=== PATIENT | male | born 1960 | race African-American/Black ===

== ENCOUNTER 2017-07-17 10:04 | Inpatient (IN) | payer OTHER ==
[2017-07-17 12:49] VITALS: BMI 24.5
--- NOTE | 2017-07-17 15:04 | HP ---
COWS - Scale Resting Pulse: 2= [place] 101-120 Sweatin=Flushed/Facial Moisture Restless Observation: 1= Difficult to Sit Still Pupil Size: 0= Normal to Room Light Bone or Joint Aches: 2= Severe Diffuse Aches Runny Nose/ Eye Tearin= Runny Nose/Eyes GI Upset > 30mins: 2= Nausea/Diarrhea Tremor Observation: 2= Slight Tremor Visible Yawning Observation: 2= >3x During Session Anxiety or Irritability: 2=Irritable/Anxious Goose Flesh Skin: 3=Piloerection COWS Score: 20 Admission ROS S - HPI Chief Complaint: I need help. Allergies/Adverse Reactions: Allergies Allergy/AdvReac Type Severity Reaction Status Date / Time No Known Allergies Allergy Verified 07/17/17 14:24 History of Present Illness: pt is a 57yr old male with a history of heroin and cocaine dependence seeking detox for treatment. Exam Limitations: No Limitations - Ebola screening Have you traveled outside of the country in the last 21 days: No (N) Have you had contact with anyone from an Ebola affected area: No Have you been sick,other than usual withdrawal symptoms: No Do you have a fever: No - Review of Systems Constitutional: Chills, Diaphoresis, Loss of Appetite, Night Sweats, Changes in sleep, Unintentional Wgt. Loss EENT: reports: Tearing, Nose Congestion Respiratory: reports: No Symptoms reported Cardiac: reports: No Symptoms Reported GI: reports: Constipated, Nausea, Poor Fluid Intake : reports: No Symptoms Reported Musculoskeletal: reports: Back Pain Integumentary: reports: Flushing, Rash (eczema to back and arms) Neuro: reports: Tingling, Tremors Endocrine: reports: Excessive Sweating, Flushing, Intolerance to Cold, Intolerance to Heat Hematology: reports: No Symptoms Reported Psychiatric: reports: Judgement Intact, Mood/Affect Appropiate, Orientated x3, Agitated, Anxious, Depressed Other Systems: Reviewed and Negative Patient History - Patient Medical History Hx Anemia: No Hx Asthma: No Hx Chronic Obstructive Pulmonary Disease (COPD): No Hx Cancer: No Hx Cardiac Disorders: No Hx Congestive Heart Failure: No Hx Hypertension: No Hx Hypercholesterolemia: Yes (not taking any medication) Hx Pacemaker: No HX Cerebrovascular Accident: No Hx Seizures: No Hx Dementia: No Hx Diabetes: No Hx Gastrointestinal Disorders: No Hx Liver Disease: No Hx Genitourinary Disorders: No Hx Sexually Transmitted Disorders: No Hx Renal Disease (ESRD): No Hx Thyroid Disease: No Hx Human Immunodeficiency Virus (HIV): No (negative) Hx Hepatitis C: No (negative) Hx Depression: Yes Hx Suicide Attempt: No (denies) Hx Bipolar Disorder: No Hx Schizophrenia: No - Patient Surgical History Past Surgical History: No - PPD History Previous Implant?: Yes Documented Results: Negative w/o proof Implanted On Prior R Admission?: No PPD to be Administered?: Yes - Reproductive History Patient is a Female of Child Bearing Age (11 -55 yrs old): No - Smoking Cessation Smoking history: Current every day smoker Have you smoked in the past 12 months: Yes Aproximately how many cigarettes per day: 5 Hx Chewing Tobacco Use: No Initiated information on smoking cessation: Yes 'Breaking Loose' booklet given: 07/17/17 - Substance & Tx. History Hx Alcohol Use: No Substance Use Type: Cocaine, Heroin Hx Substance Use Treatment: Yes (last detox a very long time ago) - Substances Abused Heroin Route: Inhalation Frequency: Daily Amount used: 15--20 bags Age of first use: 52 Date of Last Use: 07/15/17 Cocaine Route: Smoking Frequency: Daily Amount used: $50 Age of first use: 52 Date of Last Use: 07/15/17 Family Disease History - Family Disease History Family History: Denies Admission Physical Exam BHS - Vital Signs Vital Signs: Vital Signs - 24 hr 07/17/17 12:45 Temperature 98.4 F Pulse Rate 103 H Respiratory 18 Rate Blood Pressure 137/80 - Physical General Appearance: Yes: Appropriately Dressed, Moderate Distress, Tremorous, Irritable, Sweating, Anxious HEENTM: Yes: Hearing grossly Normal, Normal Voice Respiratory: Yes: Lungs Clear, Normal Breath Sounds, No Respiratory Distress Neck: Yes: Within Normal Limits Breast: Yes: Within Normal Limits Cardiology: Yes: Regular Rhythm, Regular Rate, S1, S2 Abdominal: Yes: Normal Bowel Sounds, Non Tender, Soft Genitourinary: Yes: Within Normal Limits Back: Yes: Normal Inspection Musculoskeletal: Yes: full range of Motion, Gait Steady Extremities: Yes: Normal Capillary Refill, Normal Inspection, Tremors Neurological: Yes: Fully Oriented, Alert, Normal Response Integumentary: Yes: Normal Color, Diaphoresis, Other (rash with darken spots d/ t eczema) Lymphatic: Yes: Within Normal Limits - Diagnostic (1) Opioid dependence with withdrawal Current Visit: Yes Status: Chronic (2) Eczema Current Visit: Yes Status: Chronic Qualifiers: Eczema type: unspecified Qualified Code(s): L30.9 - Dermatitis, unspecified (3) Nicotine dependence Current Visit: Yes Status: Chronic Qualifiers: Nicotine product type: cigarettes Substance use status: uncomplicated Qualified Code(s): F17.210 - Nicotine dependence, cigarettes, uncomplicated (4) Cocaine dependence Current Visit: Yes Status: Chronic Qualifiers: Substance use status: uncomplicated Qualified Code(s): F14.20 - Cocaine dependence, uncomplicated Cleared for Admission S - Detox or Rehab [facility] Level of Care: Medically Managed Detox Regimen/Protocol: Methadone [facility] Breath Alcohol Content Breath Alcohol Content: 0 Urine Drug Screen - Results Drug Screen Negative: No Urine Drug Screen Results: ANETTE-Cocaine, OPI-Opiates, MTD-Methadone
[2017-07-17] MEDS ORDERED: hydrOXYzine PAMOATE 50 MG CAPSULE (FP) PO PRN (15:11)
[2017-07-17] MEDS ORDERED: MAGNESIUM HYDROX 2400MG/30ML ORAL SUSPENSION 30 ML CUP PO PRN (15:11)
[2017-07-17] MEDS ORDERED: P-EPHED 60MG/TRIPROLIDI 2.5MG TABLET PO PRN (15:11)
[2017-07-17] MEDS ORDERED: MAG HYDROX/AL HYDROX/SIMETH 30 ML UNIT-DOSE CUP PO PRN (15:11)
[2017-07-17] MEDS ORDERED: NICOTINE POLACRILEX 4 MG GUM BUC PRN (15:11)
[2017-07-17] MEDS ORDERED: IBUPROFEN 400 MG TABLET (FP) PO PRN (15:11)
[2017-07-17] MEDS ORDERED: MENTHOL/PHENOL 1 EACH UD MM PRN (15:11)
[2017-07-17] MEDS ORDERED: MAGNESIUM CITRATE 300 ML BOTTLE PO PRN (15:11)
[2017-07-17] MEDS ORDERED: METHADONE HCL 10 MG TABLET (FOR DETOX USE ONLY) PO ONE ×2 (15:50→23:00)
[2017-07-17] MEDS ORDERED: ACETAMINOPHEN 325 MG TABLET (FP) PO PRN (17:09)
[2017-07-17] MEDS ORDERED: guaiFENesin/D-METHORPHAN HB 10 ML UNIT-DOSE CUPS PO PRN (17:10)
[2017-07-17] MEDS ORDERED: METHADONE HCL 10 MG TABLET (FOR DETOX USE ONLY) ONE (18:08)
[2017-07-17] MEDS: diazePAM 5 MG TABLET PO PRN ×2 (18:18→22:22)
[2017-07-17] MEDS: THIAMINE HCL 100 MG TABLET (FP) PO SCH (22:20)
[2017-07-17 23:15] LABS: URINE APPEARANCE TURBID; URINE BILIRUBIN NEGATIVE (NEGATIVE); URINE BLOOD NEGATIVE (NEGATIVE); URINE COLOR RED; URINE GLUCOSE (UA) NEGATIVE (NEGATIVE); URINE KETONE NEGATIVE (NEGATIVE); URINE LEUK ESTERASE NEGATIVE (NEGATIVE); URINE NITRITE NEGATIVE (NEGATIVE); URINE PROTEIN NEGATIVE (NEGATIVE)
[2017-07-18] MEDS ORDERED: METHADONE HCL 10 MG TABLET (FOR DETOX USE ONLY) PO ONE (10:00)
[2017-07-18] MEDS: NICOTINE 21 MG/24 HOURS TOPICAL PATCH TD SCH (10:26)
[2017-07-18] MEDS: diazePAM 5 MG TABLET PO PRN ×2 (10:26→22:32)
[2017-07-18] MEDS: PRENATAL VITAMINS W/ FOLIC ACID TABLET (FP) PO SCH (10:28)
[2017-07-18 10:38] LABS: HEMATOCRIT 42.5 % (35.4-49); HEMOGLOBIN 13.6 GM/dL (11.7-16.9); MCH 26.1 pg (25.7-33.7); MEAN CELL VOLUME 81.6 fl (80-96); MEAN PLT VOLUME 8.7 fl (7.5-11.1); PLATELET COUNT 271 K/MM3 (134-434); RBC 5.21 M/mm3 (4.00-5.60); RDW 15.3 % (11.9-15.9); WHITE BLOOD COUNT 9.5 K/mm3 (4.0-10.0)
[2017-07-18 10:43] LABS: ALBUMIN 3.6 g/dl (3.4-5.0); ANION GAP 7 (8-16); BLOOD UREA NITROGEN 20 mg/dL (7-18); CALCIUM 8.5 mg/dL (8.5-10.1); CHLORIDE 105 mmol/L (98-107); CO2 27 mmol/L (21-32); GLUCOSE,RANDOM 118 mg/dL (74-106); POTASSIUM 3.7 mmol/L (3.5-5.1); SODIUM 139 mmol/L (136-145)
[2017-07-18 10:47] LABS: ALK PHOS 58 U/L (45-117); BILIRUBIN,TOTAL 0.5 mg/dL (0.2-1.0); SGOT/AST 5 U/L (15-37); SGPT/ALT 13 U/L (12-78); TOT PROT 6.9 g/dl (6.4-8.2)
--- NOTE | 2017-07-18 11:04 | PN ---
BHS COWS - Scale Resting Pulse: 0= [place] 80 or Below Sweatin=Flushed/Facial Moisture Restless Observation: 1= Difficult to Sit Still Pupil Size: 0= Normal to Room Light Bone or Joint Aches: 2= Severe Diffuse Aches Runny Nose/ Eye Tearin= Nasal Congestion GI Upset > 30mins: 2= Nausea/Diarrhea Tremor Observation of Outstretched Hands: 2= Slight Tremor Visible Yawning Observation: 0= None Anxiety or Irritability: 2=Irritable/Anxious Goose Flesh Skin: 3=Piloerection COWS Score: 15 BHS Progress Note (SOAP) Subjective: Shakes, sweats, generalized itch and restlessness Objective: 07/18/17 11:00 Vital Signs - 8 hr 07/18/17 07/18/17 06:25 09:11 Temperature 97.6 F 97.9 F Pulse Rate 73 78 Respiratory 18 18 Rate Blood Pressure 106/67 106/64 Laboratory Last Values WBC 9.5 K/mm3 (4.0-10.0) 07/18/17 08:00 RBC 5.21 M/mm3 (4.00-5.60) 07/18/17 08:00 Hgb 13.6 GM/dL (11.7-16.9) 07/18/17 08:00 Hct 42.5 % (35.4-49) 07/18/17 08:00 MCV 81.6 fl (80-96) 07/18/17 08:00 MCH 26.1 pg (25.7-33.7) 07/18/17 08:00 MCHC 32.0 g/dl (32.0-35.9) 07/18/17 08:00 RDW 15.3 % (11.9-15.9) 07/18/17 08:00 Plt Count 271 K/MM3 (134-434) 07/18/17 08:00 MPV 8.7 fl (7.5-11.1) 07/18/17 08:00 Sodium 139 mmol/L (136-145) 07/18/17 08:00 Potassium 3.7 mmol/L (3.5-5.1) 07/18/17 08:00 Chloride 105 mmol/L (98-107) 07/18/17 08:00 Carbon Dioxide 27 mmol/L (21-32) 07/18/17 08:00 Anion Gap 7 (8-16) L 07/18/17 08:00 BUN 20 mg/dL (7-18) H 07/18/17 08:00 Creatinine 1.0 mg/dL (0.7-1.3) 07/18/17 08:00 Creat Clearance w eGFR > 60 (>60) 07/18/17 08:00 Random Glucose 118 mg/dL (74-106) H 07/18/17 08:00 Calcium 8.5 mg/dL (8.5-10.1) 07/18/17 08:00 Total Bilirubin 0.5 mg/dL (0.2-1.0) 07/18/17 08:00 AST 5 U/L (15-37) L 07/18/17 08:00 ALT 13 U/L (12-78) 07/18/17 08:00 Alkaline Phosphatase 58 U/L (45-117) 07/18/17 08:00 Total Protein 6.9 g/dl (6.4-8.2) 07/18/17 08:00 Albumin 3.6 g/dl (3.4-5.0) 07/18/17 08:00 Urine Color Red 07/17/17 21:00 Urine Appearance Turbid 07/17/17 21:00 Urine pH 5.0 (5.0-8.0) 07/17/17 21:00 Ur Specific [place] 1.027 (1.001-1.035) 07/17/17 21:00 Urine Protein Negative (NEGATIVE) 07/17/17 21:00 Urine Glucose (UA) Negative (NEGATIVE) 07/17/17 21:00 Urine Ketones Negative (NEGATIVE) 07/17/17 21:00 Urine Blood Negative (NEGATIVE) 07/17/17 21:00 Urine Nitrite Negative (NEGATIVE) 07/17/17 21:00 Urine Bilirubin Negative (NEGATIVE) 07/17/17 21:00 Urine Urobilinogen 2.0 mg/dL (0.2-1.0) 07/17/17 21:00 Ur Leukocyte Esterase Negative (NEGATIVE) 07/17/17 21:00 Labs noted Chronic skin changes with black spots and patches over body Assessment: 07/18/17 11:02 Withdrawal sx Atopic dermatitis Plan: Continue detox Hydrocortisone cream to affected areas
--- NOTE | 2017-07-18 11:31 | CONSULT ---
[facility] Psychiatric Consult - Data Date of interview: 07/18/17 Admission source: [facility] Identifying data: First admission to [facility] for this 57 y/o AA male seeking detox treatment on for heroin and cocaine dependence.Patient is , father of two,domiciled,unemployed and supported by spouse. Substance Abuse History: Confirmed by patient in this session.See details in current [facility] report : Smoking history: Current every day smoker. Have you smoked in the past 12 months: Yes. Aproximately how many cigarettes per day: 5. Hx Chewing Tobacco Use: No. Initiated information on smoking cessation: Yes. 'Breaking Loose' booklet given: 07/17/17. - Substance & Tx. History. Hx Alcohol Use: No. Substance Use Type: Cocaine, Heroin. Hx Substance Use Treatment: Yes (last detox a very long time ago). - Substances Abused. Heroin. Route: Inhalation. Frequency: Daily. Amount used: 15--20 bags. Age of first use: 52. Date of Last Use: 07/15/17. Cocaine. Route: Smoking. Frequency: Daily. Amount used: $50. Age of first use: 52. Date of Last Use: 07/15/17 Medical History: Eczema and dyslipidemia. Psychiatric History: Patient denies. Physical/Sexual Abuse/Trauma History: Patient denies. Additional Comment: Urine Drug Screen Results: ANETTE-Cocaine, OPI-Opiates, MTD- Methadone.Noted. Mental Status Exam - Mental Status Exam Alert and Oriented to: Time, Place, Person Cognitive Function: Good Patient Appearance: Well Groomed Mood: Hopeful, Euthymic Affect: Appropriate, Normal Range Patient Behavior: Appropriate, Cooperative Speech Pattern: Clear Voice Loudness: Normal Thought Process: Intact, Goal Oriented Thought Disorder: Not Present Hallucinations: Denies Suicidal Ideation: Denies Homicidal Ideation: Denies Insight/Judgement: Poor Sleep: Poorly, Difficulty falling asleep Appetite: Good Muscle strength/Tone: Normal Gait/Station: Normal Psychiatric Findings - Problem List ([place] 1, 2,3) (1) Opioid dependence with withdrawal Current Visit: Yes Status: Acute (2) Cocaine dependence Current Visit: Yes Status: Acute Qualifiers: Substance use status: uncomplicated Qualified Code(s): F14.20 - Cocaine dependence, uncomplicated (3) Nicotine dependence Current Visit: Yes Status: Acute Qualifiers: Nicotine product type: cigarettes Substance use status: uncomplicated Qualified Code(s): F17.210 - Nicotine dependence, cigarettes, uncomplicated (4) Insomnia Current Visit: Yes Status: Acute - Initial Treatment Plan Initial Treatment Plan: Psychoeducation provided.Detoxification in progress.Ambien 10 mg po hs prn.Parasomnias discussed.Patient consents (verbally ) to treatment.Observation.
[2017-07-18] MEDS ORDERED: FLU VACCINE QUAD 60 MCG/0.5 ML (MDV 17-18) IM ONE (12:00)
[2017-07-18] MEDS: HYDROCORTISONE 1% TOPICAL CREAM 30 GM TUBE TP PRN ×2 (13:48→22:35)
--- NOTE | 2017-07-18 16:51 | EKG ---
Test Reason : Blood Pressure : / mmHG Vent. Rate : 069 BPM Atrial Rate : 069 BPM P-R Int : 218 ms QRS Dur : 074 ms QT Int : 366 ms P-R-T Axes : 072 -22 022 degrees QTc Int : 392 ms SINUS RHYTHM WITH 1ST DEGREE A-V BLOCK ANTERIOR INFARCT , AGE UNDETERMINED ABNORMAL ECG NO PREVIOUS ECGS AVAILABLE Confirmed by MARLEE VOGEL MD ([id number]) on 07/18/2017 4:51:34 PM Referred By: Confirmed By:MARLEE VOGEL MD
[2017-07-18] MEDS: THIAMINE HCL 100 MG TABLET (FP) PO SCH (22:32)
[2017-07-18] MEDS: ZOLPIDEM TARTRATE 10 MG TABLET (PARK CARE ONLY) PO PRN (22:33)
[2017-07-19] MEDS: diazePAM 5 MG TABLET PO PRN ×3 (06:10→22:25)
[2017-07-19] MEDS ORDERED: METHADONE HCL 5 MG TABLET (FOR DETOX USE ONLY) PO ONE (10:00)
[2017-07-19] MEDS: NICOTINE 21 MG/24 HOURS TOPICAL PATCH TD SCH (10:22)
[2017-07-19] MEDS: PRENATAL VITAMINS W/ FOLIC ACID TABLET (FP) PO SCH (10:23)
--- NOTE | 2017-07-19 15:02 | PN ---
BHS COWS - Scale Resting Pulse: 1= [place] 81-100 Sweatin= Chills/Flushing Restless Observation: 3= Extraneous Movement Pupil Size: 1= Pupils >than Normal Bone or Joint Aches: 1= Mild Discomfort Runny Nose/ Eye Tearin= Nasal Congestion GI Upset > 30mins: 0= None Tremor Observation of Outstretched Hands: 2= Slight Tremor Visible Yawning Observation: 0= None Anxiety or Irritability: 2=Irritable/Anxious Goose Flesh Skin: 0=Smooth Skin COWS Score: 12 BHS Progress Note (SOAP) Subjective: anxious irritable nasal congestion Objective: 07/19/17 15:02 Laboratory Last Values WBC 9.5 K/mm3 (4.0-10.0) 07/18/17 08:00 RBC 5.21 M/mm3 (4.00-5.60) 07/18/17 08:00 Hgb 13.6 GM/dL (11.7-16.9) 07/18/17 08:00 Hct 42.5 % (35.4-49) 07/18/17 08:00 MCV 81.6 fl (80-96) 07/18/17 08:00 MCH 26.1 pg (25.7-33.7) 07/18/17 08:00 MCHC 32.0 g/dl (32.0-35.9) 07/18/17 08:00 RDW 15.3 % (11.9-15.9) 07/18/17 08:00 Plt Count 271 K/MM3 (134-434) 07/18/17 08:00 MPV 8.7 fl (7.5-11.1) 07/18/17 08:00 Sodium 139 mmol/L (136-145) 07/18/17 08:00 Potassium 3.7 mmol/L (3.5-5.1) 07/18/17 08:00 Chloride 105 mmol/L (98-107) 07/18/17 08:00 Carbon Dioxide 27 mmol/L (21-32) 07/18/17 08:00 Anion Gap 7 (8-16) L 07/18/17 08:00 BUN 20 mg/dL (7-18) H 07/18/17 08:00 Creatinine 1.0 mg/dL (0.7-1.3) 07/18/17 08:00 Creat Clearance w eGFR > 60 (>60) 07/18/17 08:00 Random Glucose 118 mg/dL (74-106) H 07/18/17 08:00 Calcium 8.5 mg/dL (8.5-10.1) 07/18/17 08:00 Total Bilirubin 0.5 mg/dL (0.2-1.0) 07/18/17 08:00 AST 5 U/L (15-37) L 07/18/17 08:00 ALT 13 U/L (12-78) 07/18/17 08:00 Alkaline Phosphatase 58 U/L (45-117) 07/18/17 08:00 Total Protein 6.9 g/dl (6.4-8.2) 07/18/17 08:00 Albumin 3.6 g/dl (3.4-5.0) 07/18/17 08:00 Urine Color Red 07/17/17 21:00 Urine Appearance Turbid 07/17/17 21:00 Urine pH 5.0 (5.0-8.0) 07/17/17 21:00 Ur Specific [place] 1.027 (1.001-1.035) 07/17/17 21:00 Urine Protein Negative (NEGATIVE) 07/17/17 21:00 Urine Glucose (UA) Negative (NEGATIVE) 07/17/17 21:00 Urine Ketones Negative (NEGATIVE) 07/17/17 21:00 Urine Blood Negative (NEGATIVE) 07/17/17 21:00 Urine Nitrite Negative (NEGATIVE) 07/17/17 21:00 Urine Bilirubin Negative (NEGATIVE) 07/17/17 21:00 Urine Urobilinogen 2.0 mg/dL (0.2-1.0) 07/17/17 21:00 Ur Leukocyte Esterase Negative (NEGATIVE) 07/17/17 21:00 RPR Titer Nonreactive (NONREACTIVE) 07/18/17 08:00 HIV 1&2 Antibody Screen Negative 07/18/17 08:00 HIV P24 Antigen Negative 07/18/17 08:00 labs noted Vital Signs Temperature 96.6 F L 07/19/17 14:14 Pulse Rate 87 07/19/17 14:14 Respiratory Rate 16 07/19/17 14:14 Blood Pressure 130/81 07/19/17 14:14 O2 Sat by Pulse Oximetry (%) Assessment: 07/19/17 15:04 withdrawal sx Plan: Continue detox
[2017-07-19] MEDS: HYDROCORTISONE 1% TOPICAL CREAM 30 GM TUBE TP PRN (22:24)
[2017-07-19] MEDS: ZOLPIDEM TARTRATE 10 MG TABLET (PARK CARE ONLY) PO PRN (22:25)
[2017-07-19] MEDS: THIAMINE HCL 100 MG TABLET (FP) PO SCH (22:25)
[2017-07-20] MEDS: LOPERAMIDE HCL 2 MG CAPSULE PO PRN (06:46)
[2017-07-20] MEDS ORDERED: METHADONE HCL 5 MG TABLET (FOR DETOX USE ONLY) PO ONE (10:00)
[2017-07-20] MEDS: PRENATAL VITAMINS W/ FOLIC ACID TABLET (FP) PO SCH (10:18)
[2017-07-20] MEDS: NICOTINE 21 MG/24 HOURS TOPICAL PATCH TD SCH (10:18)
[2017-07-20] MEDS: HYDROCORTISONE 1% TOPICAL CREAM 30 GM TUBE TP PRN (10:18)
--- NOTE | 2017-07-20 14:15 | PN ---
S Progress Note (SOAP) Subjective: ANXIETY,IRRITABILITY,LOWER BACK PAIN,DIARRHEA WITH RECTAL SORENESS/BLEEDING ON WIPING.. Objective: 07/20/17 14:13 Vital Signs Temperature 97.9 F 07/20/17 13:40 Pulse Rate 92 H 07/20/17 13:40 Respiratory Rate 20 07/20/17 13:40 Blood Pressure 113/78 07/20/17 13:40 O2 Sat by Pulse Oximetry (%) Laboratory Last Values WBC 9.5 K/mm3 (4.0-10.0) 07/18/17 08:00 RBC 5.21 M/mm3 (4.00-5.60) 07/18/17 08:00 Hgb 13.6 GM/dL (11.7-16.9) 07/18/17 08:00 Hct 42.5 % (35.4-49) 07/18/17 08:00 MCV 81.6 fl (80-96) 07/18/17 08:00 MCH 26.1 pg (25.7-33.7) 07/18/17 08:00 MCHC 32.0 g/dl (32.0-35.9) 07/18/17 08:00 RDW 15.3 % (11.9-15.9) 07/18/17 08:00 Plt Count 271 K/MM3 (134-434) 07/18/17 08:00 MPV 8.7 fl (7.5-11.1) 07/18/17 08:00 Sodium 139 mmol/L (136-145) 07/18/17 08:00 Potassium 3.7 mmol/L (3.5-5.1) 07/18/17 08:00 Chloride 105 mmol/L (98-107) 07/18/17 08:00 Carbon Dioxide 27 mmol/L (21-32) 07/18/17 08:00 Anion Gap 7 (8-16) L 07/18/17 08:00 BUN 20 mg/dL (7-18) H 07/18/17 08:00 Creatinine 1.0 mg/dL (0.7-1.3) 07/18/17 08:00 Creat Clearance w eGFR > 60 (>60) 07/18/17 08:00 Random Glucose 118 mg/dL (74-106) H 07/18/17 08:00 Calcium 8.5 mg/dL (8.5-10.1) 07/18/17 08:00 Total Bilirubin 0.5 mg/dL (0.2-1.0) 07/18/17 08:00 AST 5 U/L (15-37) L 07/18/17 08:00 ALT 13 U/L (12-78) 07/18/17 08:00 Alkaline Phosphatase 58 U/L (45-117) 07/18/17 08:00 Total Protein 6.9 g/dl (6.4-8.2) 07/18/17 08:00 Albumin 3.6 g/dl (3.4-5.0) 07/18/17 08:00 Urine Color Red 07/17/17 21:00 Urine Appearance Turbid 07/17/17 21:00 Urine pH 5.0 (5.0-8.0) 07/17/17 21:00 Ur Specific [place] 1.027 (1.001-1.035) 07/17/17 21:00 Urine Protein Negative (NEGATIVE) 07/17/17 21:00 Urine Glucose (UA) Negative (NEGATIVE) 07/17/17 21:00 Urine Ketones Negative (NEGATIVE) 07/17/17 21:00 Urine Blood Negative (NEGATIVE) 07/17/17 21:00 Urine Nitrite Negative (NEGATIVE) 07/17/17 21:00 Urine Bilirubin Negative (NEGATIVE) 07/17/17 21:00 Urine Urobilinogen 2.0 mg/dL (0.2-1.0) 07/17/17 21:00 Ur Leukocyte Esterase Negative (NEGATIVE) 07/17/17 21:00 RPR Titer Nonreactive (NONREACTIVE) 07/18/17 08:00 HIV 1&2 Antibody Screen Negative 07/18/17 08:00 HIV P24 Antigen Negative 07/18/17 08:00 Assessment: 07/20/17 14:13 WITHDRAWAL SX Plan: CONTINUE DETOX TUCKS WIPES AND ANUSOL HC OINTMENT. IMODIUM PRN
[2017-07-20] MEDS ORDERED: WITCH HAZEL 50% (TUCKS) 40 PAD/JAR PAD TP PRN (14:17)
[2017-07-20] MEDS: BENZOCAINE 28 GM HEMORRHOIDAL OINTMENT PR SCH ×2 (15:57→22:17)
[2017-07-20] MEDS: ZOLPIDEM TARTRATE 10 MG TABLET (PARK CARE ONLY) PO PRN (22:17)
[2017-07-20] MEDS: THIAMINE HCL 100 MG TABLET (FP) PO SCH (22:19)
[2017-07-21] MEDS: BENZOCAINE 28 GM HEMORRHOIDAL OINTMENT PR SCH ×4 (07:05→22:39)
[2017-07-21] MEDS ORDERED: METHADONE HCL 10 MG TABLET (FOR DETOX USE ONLY) PO ONE (10:00)
[2017-07-21] MEDS: PRENATAL VITAMINS W/ FOLIC ACID TABLET (FP) PO SCH (10:28)
[2017-07-21] MEDS: NICOTINE 21 MG/24 HOURS TOPICAL PATCH TD SCH (10:28)
--- NOTE | 2017-07-21 11:03 | PN ---
BHS Progress Note (SOAP) Subjective: ANXIETY,SWEATS,FATIGUE. Objective: 07/21/17 11:02 Vital Signs Temperature 97.1 F L 07/21/17 10:11 Pulse Rate 96 H 07/21/17 10:11 Respiratory Rate 18 07/21/17 10:11 Blood Pressure 106/70 07/21/17 10:11 O2 Sat by Pulse Oximetry (%) Laboratory Last Values WBC 9.5 K/mm3 (4.0-10.0) 07/18/17 08:00 RBC 5.21 M/mm3 (4.00-5.60) 07/18/17 08:00 Hgb 13.6 GM/dL (11.7-16.9) 07/18/17 08:00 Hct 42.5 % (35.4-49) 07/18/17 08:00 MCV 81.6 fl (80-96) 07/18/17 08:00 MCH 26.1 pg (25.7-33.7) 07/18/17 08:00 MCHC 32.0 g/dl (32.0-35.9) 07/18/17 08:00 RDW 15.3 % (11.9-15.9) 07/18/17 08:00 Plt Count 271 K/MM3 (134-434) 07/18/17 08:00 MPV 8.7 fl (7.5-11.1) 07/18/17 08:00 Sodium 139 mmol/L (136-145) 07/18/17 08:00 Potassium 3.7 mmol/L (3.5-5.1) 07/18/17 08:00 Chloride 105 mmol/L (98-107) 07/18/17 08:00 Carbon Dioxide 27 mmol/L (21-32) 07/18/17 08:00 Anion Gap 7 (8-16) L 07/18/17 08:00 BUN 20 mg/dL (7-18) H 07/18/17 08:00 Creatinine 1.0 mg/dL (0.7-1.3) 07/18/17 08:00 Creat Clearance w eGFR > 60 (>60) 07/18/17 08:00 Random Glucose 118 mg/dL (74-106) H 07/18/17 08:00 Calcium 8.5 mg/dL (8.5-10.1) 07/18/17 08:00 Total Bilirubin 0.5 mg/dL (0.2-1.0) 07/18/17 08:00 AST 5 U/L (15-37) L 07/18/17 08:00 ALT 13 U/L (12-78) 07/18/17 08:00 Alkaline Phosphatase 58 U/L (45-117) 07/18/17 08:00 Total Protein 6.9 g/dl (6.4-8.2) 07/18/17 08:00 Albumin 3.6 g/dl (3.4-5.0) 07/18/17 08:00 Urine Color Red 07/17/17 21:00 Urine Appearance Turbid 07/17/17 21:00 Urine pH 5.0 (5.0-8.0) 07/17/17 21:00 Ur Specific [place] 1.027 (1.001-1.035) 07/17/17 21:00 Urine Protein Negative (NEGATIVE) 07/17/17 21:00 Urine Glucose (UA) Negative (NEGATIVE) 07/17/17 21:00 Urine Ketones Negative (NEGATIVE) 07/17/17 21:00 Urine Blood Negative (NEGATIVE) 07/17/17 21:00 Urine Nitrite Negative (NEGATIVE) 07/17/17 21:00 Urine Bilirubin Negative (NEGATIVE) 07/17/17 21:00 Urine Urobilinogen 2.0 mg/dL (0.2-1.0) 07/17/17 21:00 Ur Leukocyte Esterase Negative (NEGATIVE) 07/17/17 21:00 RPR Titer Nonreactive (NONREACTIVE) 07/18/17 08:00 HIV 1&2 Antibody Screen Negative 07/18/17 08:00 HIV P24 Antigen Negative 07/18/17 08:00 Assessment: 07/21/17 11:02 WITHDRAWAL SX Plan: CONTINUE DETOX
[2017-07-21] MEDS: THIAMINE HCL 100 MG TABLET (FP) PO SCH (22:26)
[2017-07-21] MEDS: HYDROCORTISONE 1% TOPICAL CREAM 30 GM TUBE TP PRN (22:40)
[2017-07-22] MEDS ORDERED: METHADONE HCL 5 MG TABLET (FOR DETOX USE ONLY) PO ONE (06:00)
[2017-07-22] MEDS: BENZOCAINE 28 GM HEMORRHOIDAL OINTMENT PR SCH (06:20)
[2017-07-22 09:17] VITALS: BP 118/78; PULSE 111; TEMP 96
[2017-07-22] MEDS: LOPERAMIDE HCL 2 MG CAPSULE PO PRN (10:28)
[2017-07-22] MEDS: NICOTINE 21 MG/24 HOURS TOPICAL PATCH TD SCH (10:29)
[2017-07-22] MEDS: PRENATAL VITAMINS W/ FOLIC ACID TABLET (FP) PO SCH (10:30)
[2017-07-22] MEDS: HYDROCORTISONE 1% TOPICAL CREAM 30 GM TUBE TP PRN (10:30)
--- NOTE | 2017-07-22 11:39 | DS ---
[facility] Detox Discharge Summary Admission Date: 07/17/17 Discharge Date: 07/22/17 - History Present History: Cocaine Dependence, Opioid Dependence Additional Comments: DETOX COMPLETED. Pertinent Past History: ECZEMA LOWER BACK PAIN - Physical Exam Results Vital Signs: Vital Signs Temperature 96.0 F L 07/22/17 09:16 Pulse Rate 111 H 07/22/17 09:16 Respiratory Rate 18 07/22/17 09:16 Blood Pressure 118/78 07/22/17 09:16 O2 Sat by Pulse Oximetry (%) Pertinent Admission Physical Exam Findings: WITHDRAWAL SX Laboratory Last Values WBC 9.5 K/mm3 (4.0-10.0) 07/18/17 08:00 RBC 5.21 M/mm3 (4.00-5.60) 07/18/17 08:00 Hgb 13.6 GM/dL (11.7-16.9) 07/18/17 08:00 Hct 42.5 % (35.4-49) 07/18/17 08:00 MCV 81.6 fl (80-96) 07/18/17 08:00 MCH 26.1 pg (25.7-33.7) 07/18/17 08:00 MCHC 32.0 g/dl (32.0-35.9) 07/18/17 08:00 RDW 15.3 % (11.9-15.9) 07/18/17 08:00 Plt Count 271 K/MM3 (134-434) 07/18/17 08:00 MPV 8.7 fl (7.5-11.1) 07/18/17 08:00 Sodium 139 mmol/L (136-145) 07/18/17 08:00 Potassium 3.7 mmol/L (3.5-5.1) 07/18/17 08:00 Chloride 105 mmol/L (98-107) 07/18/17 08:00 Carbon Dioxide 27 mmol/L (21-32) 07/18/17 08:00 Anion Gap 7 (8-16) L 07/18/17 08:00 BUN 20 mg/dL (7-18) H 07/18/17 08:00 Creatinine 1.0 mg/dL (0.7-1.3) 07/18/17 08:00 Creat Clearance w eGFR > 60 (>60) 07/18/17 08:00 Random Glucose 118 mg/dL (74-106) H 07/18/17 08:00 Calcium 8.5 mg/dL (8.5-10.1) 07/18/17 08:00 Total Bilirubin 0.5 mg/dL (0.2-1.0) 07/18/17 08:00 AST 5 U/L (15-37) L 07/18/17 08:00 ALT 13 U/L (12-78) 07/18/17 08:00 Alkaline Phosphatase 58 U/L (45-117) 07/18/17 08:00 Total Protein 6.9 g/dl (6.4-8.2) 07/18/17 08:00 Albumin 3.6 g/dl (3.4-5.0) 07/18/17 08:00 Urine Color Red 07/17/17 21:00 Urine Appearance Turbid 07/17/17 21:00 Urine pH 5.0 (5.0-8.0) 07/17/17 21:00 Ur Specific [place] 1.027 (1.001-1.035) 07/17/17 21:00 Urine Protein Negative (NEGATIVE) 07/17/17 21:00 Urine Glucose (UA) Negative (NEGATIVE) 07/17/17 21:00 Urine Ketones Negative (NEGATIVE) 07/17/17 21:00 Urine Blood Negative (NEGATIVE) 07/17/17 21:00 Urine Nitrite Negative (NEGATIVE) 07/17/17 21:00 Urine Bilirubin Negative (NEGATIVE) 07/17/17 21:00 Urine Urobilinogen 2.0 mg/dL (0.2-1.0) 07/17/17 21:00 Ur Leukocyte Esterase Negative (NEGATIVE) 07/17/17 21:00 RPR Titer Nonreactive (NONREACTIVE) 07/18/17 08:00 HIV 1&2 Antibody Screen Negative 07/18/17 08:00 HIV P24 Antigen Negative 07/18/17 08:00 - Treatment Hospital Course: Detox Protocol Followed, Detoxed Safely, Responded well, Discharged Condition Good, Rehab Referral Accepted Patient has Accepted a Rehab Referral to: [facility] - Medication Discharge Medications: Ambulatory Orders NK [No Known Home Medication] 07/17/17 - Diagnosis (1) Cocaine dependence Current Visit: Yes Status: Acute Qualifiers: Substance use status: uncomplicated Qualified Code(s): F14.20 - Cocaine dependence, uncomplicated (2) Nicotine dependence Current Visit: Yes Status: Acute Qualifiers: Nicotine product type: cigarettes Substance use status: in withdrawal Qualified Code(s): F17.213 - Nicotine dependence, cigarettes, with withdrawal (3) Opioid dependence with withdrawal Current Visit: Yes Status: Acute (4) Eczema Current Visit: Yes Status: Chronic Qualifiers: Eczema type: unspecified Qualified Code(s): L30.9 - Dermatitis, unspecified (5) Lower back pain Current Visit: Yes Status: Chronic - AMA Did Patient Leave Against Medical Advice: No
== END 2017-07-22 10:50 | disposition home or self-care (01) | DRG 897 ==
LOC: YASAS 10:04 → Y3N 15:43
PROVIDERS: ADMIT Internal Medicine; ATTEND Internal Medicine
PROC: HZ2ZZZZ Detoxification Services for Substance Abuse Treatment (ICD-10-PCS; principal; 2017-07-17)
DX: F11.23 Opioid dependence with withdrawal (principal); F14.20 Cocaine dependence, uncomplicated; F17.213 Nicotine dependence, cigarettes, with withdrawal; L30.9 Dermatitis, unspecified; M54.5 Low back pain; G89.29 Other chronic pain; G47.00 Insomnia, unspecified
CPT/HCPCS: 36415; 80053; 81003; 85027; 86593; 87389; 90688; 93005; 93010